=== PATIENT | female | born 1995 | race Caucasian/White ===

== ENCOUNTER 2025-04-13 13:57 | Outpatient (CLI) | payer OTHER, SELFPAY ==
--- NOTE | ~2025-04-13 | US_ITS ---
EXAMINATION: US OB <=14 wk fetus w TV DATE: 04/13/2025 13:16 INDICATION: Spotting during first trimester TECHNIQUE: Real-time pelvic ultrasound utilizing both a transvaginal and transabdominal probe was performed. The interpreting radiologist was not present for the study. COMPARISON: None. FINDINGS: The uterus measures 13.1 x 5.3 x 6.4 cm. There are several nabothian cysts at the cervix the largest measuring 9 mm. There is an intrauterine gestational sac. A yolk sac and pole are identified. The crown rump length measures 7 mm, which correlates with an estimated gestational age of 6 weeks and 4 days. Subjectively there is no visible heart motion on the cine grayscale images. This was unable to be sufficiently distinguished on the M-mode Doppler to determine a heart rate. The right ovary measures 2.1 x 1.6 x 1.1 cm. The left ovary measures 2.2 x 1.8 x 1.9 cm. Vascular flow identified in both ovaries on color Doppler. There is no free fluid in the pelvis. IMPRESSION: 1. Single living fetus with subjective heart motion visible on cine grayscale imaging. 2. Gestational age by ultrasound of 6 weeks 4 day(s) +/- 4 day(s) with ultrasound estimated date of delivery (СЕРГЕЙ) of 12/03/2025. Reviewed, dictated and finalized at location A. IMPRESSION: 1. Single living fetus with subjective heart motion visible on cine yuliana joanna imaging. 2. Gestational age by ultrasound of 6 weeks 4 day(s) +/- 4 day(s) with ultraso und estimated date of delivery (СЕРГЕЙ) of 12/03/2025.
--- OUTSIDE RECORDS SUMMARY | 2025-04-13 12:33 | XMS_ITS | Clinical Summary ---
Author Organization [facility] Address [address] [place] [address] Care Team Providers Care Mgmt Consultant Name Role Phone Mike Ellsworth MD Primary Care Provider [phone] [phone] Allergies No known active allergies Medications diclofenac sodium (VOLTAREN) 75 mg Tablet, Delayed Release (E.C.) TAKE 1 TABLET(75 MG) BY MOUTH TWICE DAILY 60 Tablet 02/21/2025 Active Active Problems Problem Noted Date Diagnosed Date Encounter for screening of mother 04/2016 Overview (11/17/2024): 1st look on 10/22/2015 Result: 1:10,000 for DS and 1:10,000 for Trisomy 18 2nd blood draw ideal dates: - Letter sent 10/31/2015 Final result: pending second draw Encounter for (NT) nuchal translucency scan 09/25 Encounters Date Type Department Care Team Description 03/29/2025 External Device Data ST[facility] ABSTRACTION Provider, Abstract 03/28/2025 External Device Data [facility] ABSTRACTION Provider, Abstract 03/08/2025 External Device Data [facility] ABSTRACTION Provider, Abstract 03/07/2025 External Device Data STL ABSTRACTION Provider, Abstract 02/22/2025 11:15 AM CDT Office Visit [facility] Sports Medicine at the [facility] [address] [facility] [address] [place] [address] Jeferson Grant MD Primary osteoarthritis of left hip (Primary Dx) 02/21/2025 External Device Data STL ABSTRACTION Provider, Abstract 02/17/2025 Refill [facility] Orthopedic Surgery at the [address] [place] [address] Gloria Nair PA 02/17/2025 Telephone [facility] Orthopedic Surgery at the [address] [place] [address] Gloria Nair PA Handicapped Placard 02/16/2025 3:30 PM CDT Office Visit [facility] Orthopedic Surgery at the [address] [place] [address] Gloria Nair PA Other secondary osteoarthritis of left hip (Primary Dx) 01/17/2025 Refill [facility] Orthopedic Surgery at the [address] [place] [address] Gloria Nair PA from Last 3 Months Social History Tobacco Use Types Packs/Day Years Used Date Smoking Tobacco: Never Tobacco Cessation:Counseling Given: Not Answered Comments Unknown Sex and Gender Information Value Date Recorded Sex Assigned at Not on file Legal Sex Female 3:19 AM FUR MIXER Gender Identity Not on file Sexual Orientation Not on file Plan of Treatment Health Maintenance Due Date Last Done Comments HPV VACCINES (1 - 3-dose series) 2009 DTAP/TDAP/TD VACCINES (1 - Tdap) 2013 HEPATITIS B VACCINES (1 of 3 - 19+ 3-dose series) 05/24 HPV/Cotest (21-29) 2015 CERVICAL CANCER SCREENING 2024 HPV/Cotest (30-65) 2024 PAP SMEAR 2024 INFLUENZA VACCINE (#1) 2025 Insurance [place] [id number] Care Teams Mgmt Consultant Relationship Specialty Start Date End Date Mike Ellsworth MD [address] [place] [phone] PCP - General 01/01/05
--- OUTSIDE RECORDS SUMMARY | 2025-04-13 12:33 | XMS_ITS | Encounter Summary ---
Author Organization [employer] Address [address] [place] [address] Care Team Providers Care Nipple Maker Name Role Phone Mike Ellsworth MD Primary Care Provider [phone] Encounter Details Date Type Department Care Team (Latest Contact Info) Description 01/01/2005 Inpatient Historical [facility] PATIENT IN A BED Alex Buckner MD NO ADDRESS ON FILE FEMORAL EPIPHYSIOLYSIS (Primary Dx) Social History Tobacco Use Types Packs/Day Years Used Date Smoking Tobacco: Never Assessed Comments Unknown Sex and Gender Information Value Date Recorded Sex Assigned at Not on file Legal Sex Female 3:19 AM ARTISTS' MODEL Gender Identity Not on file Sexual Orientation Not on file documented as of this encounter Plan of Treatment Not on file documented as of this encounter Visit Diagnoses Diagnosis Nontraumatic slipped upper femoral epiphysis- Primary documented in this encounter Care Teams Nipple Maker Relationship Specialty Start Date End Date Mike Ellsworth MD [address] [place] [phone] PCP - General 01/01/05 documented as of this encounter
--- OUTSIDE RECORDS SUMMARY | 2025-04-13 12:33 | XMS_ITS | Encounter Summary ---
Author Organization [employer] Address [address] [place] [address] Care Team Providers Care Design Project Manager Name Role Phone Mike Ellsworth MD Primary Care Provider [phone] [phone] Encounter Details Date Type Department Care Team (Latest Contact Info) Description 07/10/2005 Outpatient Historical HIS PATIENT IN A BED Alex Bukcner MD NO ADDRESS ON FILE FEMORAL EPIPHYSIOLYSIS (Primary Dx) Social History Tobacco Use Types Packs/Day Years Used Date Smoking Tobacco: Never Assessed Comments Unknown Sex and Gender Information Value Date Recorded Sex Assigned at Not on file Legal Sex Female 3:19 AM ENGINE MONITOR Gender Identity Not on file Sexual Orientation Not on file documented as of this encounter Plan of Treatment Not on file documented as of this encounter Visit Diagnoses Diagnosis Nontraumatic slipped upper femoral epiphysis- Primary documented in this encounter Care Teams Design Project Manager Relationship Specialty Start Date End Date Mike Ellsworth MD [address] [place] [phone] PCP - General 01/01/05 documented as of this encounter
--- OUTSIDE RECORDS SUMMARY | 2025-04-13 12:33 | XMS_ITS | Encounter Summary ---
Author Organization [facility] Address [address] [place] [address] Care Team Providers Care Retail Department Supervisor Name Role Phone Mike Ellsworth MD Primary Care Provider [phone] [phone] Encounter Details Date Type Department Care Team (Late st Contact Info) Description 06/03/2006 Outpatient Historical [facility] [address] [facility] [address] [place] [phone] Brennen Green Social History Tobacco Use Types Packs/Day Years Used Date Smoking Tobacco: Never Assessed Comments Unknown Sex and Gender Information Value Date Recorded Sex Assigned at Not on file Legal Sex Female 3:19 AM ELECTRONIC TECH Gender Identity Not on file Sexual Orientation Not on file documented as of this encounter Plan of Treatment Not on file documented as of this encounter Visit Diagnoses Not on filedocumented in this encounter Care Teams Retail Department Supervisor Relationship Specialty Start Date End Date Mike Ellsworth MD [address] [facility] [address] [place] [address] PCP - General 01/01/05 documented as of this encounter
--- OUTSIDE RECORDS SUMMARY | 2025-04-13 12:33 | XMS_ITS | Encounter Summary ---
Author Organization [facility] Address [address] [place] [address] Care Team Providers Care Edge Stainer Machine Name Role Phone Mike Ellsworth MD Primary Care Provider [phone] [phone] Encounter Details Date Type Department Care Team (Late st Contact Info) Description 06/03/2006 Outpatient Historical [facility] Department of Peds at [facility] [address] [place] [address] Archie Roca MD NO ADDRESS ON FILE Social History Tobacco Use Types Packs/Day Years Used Date Smoking Tobacco: Never Assessed Comments Unknown Sex and Gender Information Value Date Recorded Sex Assigned at Not on file Legal Sex Female 3:19 AM DIAL MARKER Gender Identity Not on file Sexual Orientation Not on file documented as of this encounter Plan of Treatment Not on file documented as of this encounter Visit Diagnoses Not on filedocumented in this encounter Care Teams Edge Stainer Machine Relationship Specialty Start Date End Date Mike Ellsworth MD [address] [place] [address] [address] [phone] PCP - General 01/01/05 documented as of this encounter
--- OUTSIDE RECORDS SUMMARY | 2025-04-13 12:33 | XMS_ITS | Encounter Summary ---
Author Organization [facility] [employer] [facility] Address [address] [place] [address] Care Team Providers Care Motorcycle Riding Instructor Name Role Phone Mike Ellsworth MD Primary Care Provider [phone] [phone] Encounter Details Date Type Department Care Team (Late st Contact Info) Description 09/15/2006 Outpatient Historical [facility] Mike Ellsworth MD [address] [address] Swelling, Mass, or Lump in Head and Neck (Primary Dx) Social History Tobacco Use Types Packs/Day Years Used Date Smoking Tobacco: Never Assessed Comments Unknown Sex and Gender Information Value Date Recorded Sex Assigned at Not on file Legal Sex Female 3:19 AM PROFESSOR OF COUNSELING Gender Identity Not on file Sexual Orientation Not on file documented as of this encounter Plan of Treatment Not on file documented as of this encounter Visit Diagnoses Diagnosis Swelling, mass, or lump in head and neck- Primary documented in this encounter Care Teams Motorcycle Riding Instructor Relationship Specialty Start Date End Date Mike Ellsworth MD [address] [facility] [address] [address] PCP - General 01/01/05 documented as of this encounter
--- OUTSIDE RECORDS SUMMARY | 2025-04-13 12:33 | XMS_ITS | Clinical Summary ---
Author Organization [facility] Address [facility] [place] [address] Care Team Providers Care Life Skills Specialist Name Role Phone None, Provider Primary Care Provider Unavaila ble Allergies No known active allergies Medications diclofenac EC (VOLTAREN) 75 MG tablet Take 1 tablet (75 mg total) by mouth 2 (two) times daily. 02/21/2025 Active Encounters Date Type Department Care Team Description 04/09/2025 10:26 PM CDT - 04/10/2025 1:04 AM CDT Emergency [facility] Emergency Room [id number] [place], [place] [id number] Kerline Keating MD Vaginal Bleeding Discharge Disposition: Home or Self Care (Routine Discharge) 04/09/2025 Travel from Last 3 Months Social History Tobacco Use Types Packs/Day Years Used Date Smoking Tobacco: Every Day Electronic Cigarettes Smokeless Tobacco: Former Alcohol Use Standard Drinks/Week Comments Never 0 (1 standard drink = 0.6 oz pur e alcohol) AUDIT-C Answer Date Recorded Q1: How often do you have a drink containing alc ohol? Never 07/28/2020 Average Number of Drinks Not on file 020 Frequency of Binge Drinking Not on file 12/2019 Comments Yes Sex and Gender Information Value Date Recorded Sex Assigned at Female 04/09/2025 10:48 PM CDT Legal Sex Female 7:11 PM CDT Gender Identity Not on file Sexual Orientation Not on file Last Filed Vital Signs Vital Sign Reading Time Taken Comments Blood Pressure 126/74 04/10/2025 1:00 AM CDT Pulse 98 04/09/2025 10:38 PM CDT Temperature 37.1 C (98.7 F) 04/09/2025 10:38 PM CDT Respiratory Rate 19 04/09/2025 10:38 PM CDT Oxygen Saturation 99% 04/10/2025 1:00 AM CDT Inhaled Oxygen Concentration - - Weight 127 kg (280 lb) 04/09/2025 10:38 PM CDT Height 162.6 cm (5' 4) 04/09/2025 10:38 PM CDT Body Mass Index 48.06 04/09/2025 10:38 PM CDT Plan of Treatment Health Maintenance Due Date Last Done Comments Cervical Cancer Screening Pa p Smear (Age 30 to 64) Every 3 Years 1994 Annual Physical 1997 Hepatitis C 2012 DTaP, Tdap and Td Vaccines ( 1 - Tdap) 2013 Hepatitis B Vaccines (1 of 3 - 19+ 3-dose series) 2013 Pneumococcal Vaccine: Pediatrics (0 to 5 Years) and At-Risk Patients (6 to 49 Years) (1 of 2 - PCV) 2013 HPV Vaccines (1 - 3-dose SCD M series) 2021 COVID-19 Vaccine (3 - 2023-2 5 season) 2024 04/07/2021, 12/11/2020 Cervical Cancer Screening Pa p with HPV Testing (Age 30 to 64) Every 5 Years 2024 Cervical Cancer Screening wi HPV 2024 RSV Immunization or 60+ Years (1 - 1-dose 75+ series) 2069 Meningococcal B Vaccine Aged Out No l onger eligible based on patient's age to complete this topic Meningococcal Vaccine Aged Out No alex lizeth eligible based on patient's age to complete this topic RSV Immunizations Under 20 Months Aged Out No longer eligible b ased on patient's age to complete this topic Procedures Procedure Name Priority Date/Time Associated Diagnosis Comments US OB TRANSVAG STAT 04/09/2025 11:56 PM CDT HC BLOOD TYPING ABO STAT 04/09/2025 1 0:45 PM CDT HC HCG QN STAT 04/09/2025 10:45 PM CDT COMPREHENSIVE METABOLIC PANEL STAT 04/09/2025 10:45 PM CDT CBC W/DIFF AUTOMATED STAT 04/09/2025 10:45 PM CDT from Last 3 Months Results * US OB TRANSVAG (04/09/2025 11:56 PM CDT) Anatomical Region Laterality Modality Abdomen, Pelvis Ultrasound 04/09/2025 11:5 5 PM CDT Impressions 04/10/2025 12:04 AM CDT IMPRESSION: ===== 1. Single live intrauterine with estimated gestational age of 6 week and 1 day. This is concordant with age by LMP of 5 weeks and 4 days. 2. heart rate 125 3. Small subchorionic hemorrhage measuring up to 18 mm. Follow-up recommended. 4. Neither maternal ovary is identified. 5. No findings to suggest ectopic . Referred By: Interpreted By: Pj Anderson MD, 04/09/2025 11:55 PM Narrative 04/10/2025 12:04 AM CDT [facility] [address] [facility] [place] [address] EXAMINATION: OB ultrasound with transvaginal imaging EXAM DATE/TIME: 04/09/2025 11:04 PM REASON FOR EXAM: Rule out ectopic Bleeding at 9:00 PM this evening. No associated pain. LMP 03/01/2025. A2. COMPARISON: No comparison this . TECHNIQUE: Transvaginal ultrasound evaluation of the pelvic contents was performed for analysis of grayscale and color Doppler imaging characteristics. FINDINGS: Nabothian cysts. The cervix is closed. Uterus measures 5.7 x 10.3 x 5.1 cm. Single intrauterine identified. A yolk sac and pole are seen within the gestational sac. Average crown rump length is 3.72 cm per cardiac activity is identified in the pole and measures 125 bpm. Average gestational sac size diameter is 2.13 cm. There is a small subchorionic hemorrhage measuring up to 18 mm. Neither ovary is identified. No significant free fluid in the pelvis. ===== Procedure Note Pj Anderson MD - 04/10/2025 [facility] [address] [place] [address] EXAMINATION: OB ultrasound with transvaginal imaging EXAM DATE/TIME: 04/09/2025 11:04 PM REASON FOR EXAM: Rule out ectopic Bleeding at 9:00 PM this evening. No associated pain. LMP 03/01/2025. . COMPARISON: No comparison this . TECHNIQUE: Transvaginal ultrasound evaluation of the pelvic contents wasperformed for analysis of grayscale and color Doppler imagingcharacteristics. FINDINGS: Nabothian cysts. The cervix is closed. Uterus measures 5.7 x10.3 x 5.1 cm. Single intrauterine identified. A yolk sac andfetal pole are seen within the gestational sac. Average crown rump lengthis 3.72 cm per cardiac activity is identified in the pole andmeasures 125 bpm. Average gestational sac size diameter is 2.13 cm.There is a small subchorionic hemorrhage measuring up to 18 mm. Neitherovary is identified. No significant free fluid in the pelvis. ===== IMPRESSION: ===== 1. Single live intrauterine with estimated gestational age of 6week and 1 day. This is concordant with age by LMP of 5 weeks and 4days. 2. heart rate 125 3. Small subchorionic hemorrhage measuring up to 18 mm. Follow-uprecommended. 4. Neither maternal ovary is identified. 5. No findings to suggest ectopic . Referred By: Interpreted By: Pj Anderson MD, 04/09/2025 11:55 PM us Kerline Keating MD ULTRASOUND Final Result * (ABNORMAL) COMPREHENSIVE METABOLIC PANEL (04/09/2025 10:45 PM CDT) [facility] GLUCOSE 94 70 - 99 MG/DL 04/09/2025 11:48 PM CDT [facility] BUN 7 7 - 18 MG/DL 04/09/2025 11:48 PM CDT [facility] CREATININE S/P/B 0.58 0.55 - 1.02 MG/DL 04/09/2025 11:48 PM CDT [facility] SODIUM S/P/B 137 136 - 145 MMOL/L 04/09/2025 11:48 PM CDT [facility] POTASSIUM S/P/B 3.9 3.5 - 5.1 MMOL/L 04/09/2025 11:48 PM CDT [facility] CHLORIDE S/P/B 103 100 - 108 MMOL/L 04/09/2025 11:48 PM CDT [facility] CO2 23.2 21 - 32 MMOL/L 04/09/2025 11:48 PM CDT [facility] CALCIUM S/P/B 8.7 8.5 - 10.1 MG/DL 04/09/2025 11:48 PM T [facility] BILIRUBIN TOTAL S/P/B 0.3 0.2 - 1.2 MG/DL 04/09/2025 11:48 PM T [facility] TOTAL PROTEIN S/P/B 6.9 6.4 - 8.2 G/DL 04/09/2025 11:48 PM T [facility] ALBUMIN S/P/B 3.4 3.4 - 5.0 G/DL 04/09/2025 11:48 PM T [facility] AST 22 15 - 37 U/L 04/09/2025 11:48 PM CDT [facility] ALT 37 14 - 55 U/L 04/09/2025 11:48 PM CDT [facility] ALKALINE PHOSPHATASE S/P/B 47(L) 50 - 136 U/L 04/09/2025 11:48 PM CDT [facility] ANION GAP 10.8 5 - 15 MMOL/L 04/09/2025 11:48 PM CDT [facility] BUN CREATININE RATIO 12.1 6 - 26 04/09/2025 11:48 PM CDT [facility] A/G RATIO 1.0 1.0 - 2.0 RATIO 04/09/2025 11:48 PM CDT [facility] GFR ESTIMATE >90 >90 ML/MIN/1.7 3 M2 04/09/2025 11:48 PM CDT [facility] Comment: NOTE: eGFR is not calculated for patients <18 years of age. This is an estimated GFR calculation using the new CKD EPI creatinine equation without race and so does not require a correction factor for race. This estimated GFR should not be used for calculating drug doses. 04/09/2025 10:4 5 PM CDT Kerline Keating MD LABORATORY Final Result [facility] [address] [place] [address], * (ABNORMAL) HCG QUANTITATIVE SERUM (04/09/2025 10:45 PM CDT) Pathologist [facility] HCG QUANTITATIVE 38,908(H) 0 - 6 MIU/ML 04/09/2025 11:48 PM CDT [facility] Comment: WEEKS OF REFERENCE RANGES NON- FEMALE 0-6 0.2 - 1 5 - 50 1 - 2 50 - 500 2 - 3 100 - 5000 3 - 4 500 - 10,000 4 - 5 1000 - 50,000 5 - 6 10,000 - 100,000 6 - 8 15,000 - 200,000 2 - 3 MONTHS 10,000 - 100,000 04/09/2025 10:4 5 PM CDT us Kerline Keatnig MD LABORATORY Final Result Performing Organization Address City/[facility]/ZIP Co de Phone Number [facility] [address] [place] [address], [place] [phone] * BLOOD TYPING, ABO AND RH (04/09/2025 10:45 PM CDT) Pathologist [facility] ABO/RH A POSITIVE 04/09/2025 11:45 PM CDT [facility] 04/09/2025 10:4 5 PM CDT us Kerline Keating MD BLOOD BANK TEST ORDERABLES Melva l Result Performing Organization Address City/[facility]/ZIP Co de Phone Number [facility] [address] [place] [address], [place] [phone] * (ABNORMAL) CBC W/DIFF AUTOMATED (04/09/2025 10:45 PM CDT) WBC 10.58 4.4 - 11.0 x10'3/uL 04/09/2025 11:02 PM CDT [facility] RBC 4.95 4.50 - 5.10 x10'6/uL 04/09/2025 11:02 PM CDT [facility] HGB 13.4 12.3 - 15.3 G/DL 04/09/2025 11:02 PM CDT [facility] HCT 41.5 35.9 - 44.6 % 04/09/2025 11:02 PM CDT [facility] MCV 83.8 80.0 - 96.0 FL 04/09/2025 11:02 PM CDT [facility] MCH 27.1 25.3 - 30.9 PG 04/09/2025 11:02 PM T [facility] MCHC 32.3 31.0 - 34.1 G/DL 04/09/2025 11:02 PM [facility] RDW 14.7 12.4 - 15.1 % 04/09/2025 11:02 PM [facility] PLT 253 151 - 353 x10'3/uL 04/09/2025 11:02 PM T [facility] MPV 10.0 9.6 - 12.0 FL 04/09/2025 11:02 PM T [facility] RBC MORPHOLOGY NORMAL 04/09/2025 11:02 PM [facility] PLT MORPH. NORMAL 04/09/2025 11:02 PM [facility] WBC MORPHOLOGY NORMAL 04/09/2025 11:02 PM [facility] LYMPHOCYTES % 23.9 15.8 - 45.0 % 04/09/2025 11:02 PM [facility] NEUTROPHILS % 66.2 42.1 - 71.9 % 04/09/2025 11:02 PM [facility] MONOCYTES % 7.5 5.7 - 12.5 % 04/09/2025 11:02 PM [facility] EOSINOPHILS 1.4 0.0 - 5.6 % 04/09/2025 11:02 PM [facility] BASOPHILS 0.5 0.0 - 1.3 % 04/09/2025 11:02 PM [facility] ABS. NEUTROPHILS 7.01(H) 1.40 - 6.00 x10'3/uL 04/09/2025 11:02 PM [facility] IMMATURE GRANS % 0.5 0.0 - 0.5 % 04/09/2025 11:02 PM CDT [facility] ABS. LYMPHOCYTES 2.53 0.80 - 4.70 x10'3/uL 04/09/2025 11:02 PM CDT [facility] 04/09/2025 10:4 5 PM CDT Kerline Keating MD LABORATORY Final Result [facility] [address] [place] [address], [place] [phone] from Last 3 Months Insurance Care Teams Life Skills Specialist Relationship Specialty Start Date End Date None, Provider, PCP - General UNKNOWN PHYSICIAN SPECIALTY 04/09/25
--- OUTSIDE RECORDS SUMMARY | 2025-04-13 12:33 | XMS_ITS | Encounter Summary ---
Author Organization [employer] Address [address] [place] [address] Care Team Providers Care Osteopathic Medicine Teacher Name Role Phone Mike Ellsworth MD Primary Care Provider +1 [phone] Encounter Details Date Type Department Care Team (Latest Contact Info) Description 06/03/2006 Inpatient Historical HIS PATIENT IN A BED Mike Ellsworth MD [address] [place] [phone] Cellulitis and Abscess of Buttock (Primary Dx) Social History Tobacco Use Types Packs/Day Years Used Date Smoking Tobacco: Never Assessed Comments Unknown Sex and Gender Information Value Date Recorded Sex Assigned at Not on file Legal Sex Female 3:19 AM STENOTYPIST Gender Identity Not on file Sexual Orientation Not on file documented as of this encounter Plan of Treatment Not on file documented as of this encounter Procedures Procedure Name Priority Date/Time Associated Diagnosis Comments CBC WITH DIFFERENTIAL Routine 06/03/2006 6:10 PM CDT CBC WITH DIFFERENTIAL Routine 06/03/2006 6:10 PM CDT CBC WITH DIFFERENTIAL Routine 06/03/2006 6:10 PM CDT C-REACTIVE PROTEIN Routine 06/03/2006 6: 10 PM CDT documented in this encounter Results * (ABNORMAL) CBC WITH DIFFERENTIAL (06/03/2006 6:10 PM CDT) Pathologist [facility] [place] NEUTROPHIL ABSOLUTE 10.71 K/uL INTERFACE SYSTEM LYMPHOCYTE ABSOLUTE 1.68 K/uL INTERFACE SYSTEM MONOCYTE ABSOLUTE 0.52 K/uL INTERFACE SYSTEM EOSINOPHIL ABSOLUTE 0.00 K/uL INTERFACE SYSTEM BASOPHILS ABSOLUTE 0.00 K/uL INTERFACE SYSTEM NEUTROPHILS, SEG 83(H) 36 - 74 % INT ERFACE SYSTEM LYMPHOCYTES 13(L) 18 - 53 % INTERFAC E SYSTEM MONOCYTES 4 2 - 13 % INTERFACE SYSTEM EOSINOPHILS 0(L) 2 - 12 % INTERFAC E SYSTEM BASOPHILS 0 0 - 3 % INTERFACE SYSTEM PLATELET EST. Consistent w/ count Normal INTERFACE SYSTEM ANISOCYTOSIS Slight INTERFA CE SYSTEM POIKILOCYTES Slight INTERFA CE SYSTEM MICROCYTES Slight INTERFACE SYSTEM OVALOCYTES Slight INTERFACE SYSTEM 06/03/2006 6:10 PM CDT Archie Roca MD HEMATOLOGY ORDERABLES Melva l Result Performing Organization Address City/[facility] Co de Phone Number INTERFACE SYSTEM Refer to clinic/hospital department * CBC WITH DIFFERENTIAL (06/03/2006 6:10 PM CDT) Pathologist [facility] [place] NRBC 0 <=0 /100 WBC INTERFACE SYSTEM 06/03/2006 6:10 PM CDT Archie Roca MD HEMATOLOGY ORDERABLES Melva l Result Performing Organization Address [facility]/ZIP Co de Phone Number INTERFACE SYSTEM Refer to clinic/hospital department * (ABNORMAL) CBC WITH DIFFERENTIAL (06/03/2006 6:10 PM CDT) Pathologist [facility] [place] WBC 12.9(H) 4.0 - 9.8 K/uL INTERFACE SYSTEM RBC 5.01(H) 3.90 - 4.90 M/uL INTERFACE SYSTEM HEMOGLOBIN 12.9 11.8 - 14.8 g/dL INTERFACE SYSTEM HEMATOCRIT 39.0 35.5 - 44.0 % INTERFACE SYSTEM MCV 77.8(L) 82.0 - 99.0 fL INTERFACE SYSTEM MCH 25.7(L) 27.2 - 32.6 pg INTERFACE SYSTEM MCHC 33.1 31.5 - 35.5 % INTERFACE SYSTEM RDW 13.7 11.5 - 14.5 % INTERFACE SYSTEM RDW-STDEV 38.8 37.1 - 48.7 fL INTERFACE SYSTEM PLATELETS 317 140 - 350 K/uL INTERFACE SYSTEM MPV 10.9 9.3 - 12.4 fL INTERFACE SYSTEM 06/03/2006 6:10 PM CDT Archie Roca MD HEMATOLOGY ORDERABLES Melva l Result Performing Organization Address City/[facility]/ZIP Co de Phone Number INTERFACE SYSTEM Refer to clinic/hospital department * (ABNORMAL) C-REACTIVE PROTEIN (06/03/2006 6:10 PM CDT) CRP 2.1(H) 0.0 - 0.8 mg/dL INTERFACE SYSTEM 06/03/2006 6:10 PM CDT us Archie Roca MD CHEMISTRY ORDERABLES Final Result Performing Organization Address City/[facility] Co de Phone Number INTERFACE SYSTEM Refer to clinic/hospital department documented in this encounter Visit Diagnoses Diagnosis Cellulitis and abscess of buttock- Primary documented in this encounter Care Teams Osteopathic Medicine Teacher Relationship Specialty Start Date End Date Mike Ellsworth MD [address] [place] [phone] PCP - General 01/01/05 documented as of this encounter
--- OUTSIDE RECORDS SUMMARY | 2025-04-13 12:33 | XMS_ITS | Encounter Summary ---
Author Organization [facility] Address [address] [place] [address] Care Team Providers Care Director Instructional Material Name Role Phone Mike Ellsworth MD Primary Care Provider +1 [phone] Encounter Details Date Type Department Care Team (Late st Contact Info) Description 11/23/2008 Outpatient Historical HIS IMG-LAB [facility] Angélica Martin MD [address] [place] [address] Cervicalgia Social History Tobacco Use Types Packs/Day Years Used Date Smoking Tobacco: Never Assessed Comments Unknown Sex and Gender Information Value Date Recorded Sex Assigned at Not on file Legal Sex Female 3:19 AM NAPKIN BAND WRAPPER Gender Identity Not on file Sexual Orientation Not on file documented as of this encounter Plan of Treatment Not on file documented as of this encounter Procedures Procedure Name Priority Date/Time Associated Diagnosis Comments CT LUMBAR SPINE WO CONTRAST Pending Discharge 11/23/2008 4:05 PM CDT documented in this encounter Results * CT LUMBAR SPINE WO CONTRAST (11/23/2008 4:05 PM CDT) Anatomical Region Laterality Modality Spine Other 11/23/2008 4:05 PM CDT Narrative 11/24/2008 9:57 AM CDT [facility] [address] [place], [place] [address] Admit Date: 11/23/2008 KAREN CALIXTO I Sex: F Admit Prov: ANGÉLICA MARTIN Date: 1995 Primary Care Prov: MIKE ELLSWORTH CMRN: [id number] Room: [facility] SSN: [id number] IMAGING SERVICES Ordering Prov: N/A Accession Number: [id number] Interpretation CT LUMBAR SPINE WITHOUT CONTRAST Nov 23, 2008 4:12:17 PM History: Possible spondylolysis at L5-S1, low back pain. Technique: Due to the patient's young age a limited study was performed with axial images from L3 through S1 reformatted in sagittal and coronal planes. The lower lumbar vertebrae are normally aligned without subluxation or compression deformity. Disc height is maintained. No pars defects are identified. No fractures are seen. There is question of a disc bulge at L5- S1, possibly with a superimposed focal left paracentral disc herniation. This does not cause spinal canal stenosis or foraminal stenosis. There is also mild bulging of the L4-L5 disc without stenosis. Impression: Questionable small disc herniation at L5-S1 which could be further evaluated with MRI. No evidence of spondylolysis or spondylolisthesis. . Dictated by: FABIÁN JACK 11/23/2008 16:59 Electronically signed by: FABIÁN JACK 11/24/2008 09:55 Transcribed: 11/23/2008 17:06 LE Procedure Note Fabián Jack - 11/24/[address] [address] Admit Date: 11/23/2008 SILVESTREPANFILO KARENClau Sex: F Admit Prov: ANGÉLICA MARTIN Date:1995 Primary Care Prov: MIKE ELLSWORTH CMRN: [id number] Room: [facility] SSN: [id number] IMAGING SERVICES Ordering Prov: N/A Interpretation CT LUMBAR SPINE WITHOUT CONTRAST Nov 23, 2008 4:12:17 PM History: Possible spondylolysis at L5-S1, low back pain. Technique: Due to the patient's young age a limited study wasperformed with axial images from L3 through S1 reformatted in sagittal andcoronal planes. The lower lumbar vertebrae are normally aligned withoutsubluxation or compression deformity. Disc height is maintained. No pars defectsare identified. No fractures are seen. There is question of a disc bulgeat L5- S1, possibly with a superimposed focal left paracentral discherniation. This does not cause spinal canal stenosis or foraminal stenosis.There is also mild bulging of the L4-L5 disc without stenosis. Impression: Questionable small disc herniation at L5-S1 which could be further evaluated with MRI. No evidence of spondylolysis or spondylolisthesis. . Dictated by: FABIÁN JACK 11/23/2008 16:59 Electronically signed by: FABIÁN JACK 11/24/2008 09:55 Transcribed: 11/23/2008 17:06 LE us Angélica Martin MD CT ORDERABLES Final Resul t documented in this encounter Visit Diagnoses Diagnosis Cervicalgia documented in this encounter Care Teams Director Instructional Material Relationship Specialty Start Date End Date Mike Ellsworth MD [address] [place] [phone] PCP - General 01/01/05 documented as of this encounter
--- OUTSIDE RECORDS SUMMARY | 2025-04-13 12:33 | XMS_ITS | Clinical Summary ---
Author Organization [facility] [address] Address [address] [place] [address] Care Team Providers Care Pantograph Machine Operator Name Role Phone Unknown, Notinfile Primary Care Provider Unavail able Allergies No known active allergies Medications cetirizine (ZyrTEC) 10 mg tablet Take 1 tablet (10 mg total) by mouth daily Active fluticasone propionate (FLONASE) 50 mcg/actuation nasal spray Administer 1 spray into each nostril daily Active albuterol HFA (PROVENTIL HFA,VENTOLIN HFA,PROAIR HFA) 90 mcg/actuation inhalerIndicati ons:Acute cough Inhale 2 puffs every 6 (six) hours as needed for wheezing or shortness of breath 18 g 4 Active benzonatate (TESSALON) 100 mg capsuleIndicati ons:Cough Take 1 capsule (100 mg total) by mouth 3 (three) times a day as needed for cough 42 capsule 4 Active amoxicillin-cla vulanate (AUGMENTIN) 875-125 mg per tablet Take 1 tablet by mouth 2 (two) times a day 20 tablet 5 Active Active Problems Problem Noted Date Diagnosed Date Otalgia 01/20/2025 Personal history of COVID-19 12/17/2021 Overview (12/17/2021): August 2021 per pt's recall Encounters Date Type Department Care Team Description 01/20/2025 6:35 PM CDT E-Visit [facility] Medical [facility] Virtual Care [address] [place] [address] Fadumo Mota, CIARA Your Medications 01/20/2025 Patient Self-Triage [facility] [address] [place] [address] Mychart, Generic Provider 01/20/2025 Patient Self-Triage [facility] [address] [place] [address] Mychart, Generic Provider 01/20/2025 Patient Self-Triage [facility] [address] [place] [id number] Mychart, Generic Provider from Last 3 Months Immunizations Immunization Administration Dates Next Due Pfizer SARS-CoV-2 Monovalent Vaccination (12+ Yrs) PURPLE 04/24/2021,11/22/2020 Social History Tobacco Use Types Packs/Day Years Used Date Smoking Tobacco: Never Assessed Personal Safety Answer Date Recorded Getting School Help Needed Not on file 12/06 Comments Unknown Sex and Gender Information Value Date Recorded Sex Assigned at Not on file Legal Sex Female 2:12 PM CDT Gender Identity Not on file Sexual Orientation Not on file Last Filed Vital Signs Vital Sign Reading Time Taken Comments Blood Pressure 138/78 06/15/2024 8:31 AM CDT Pulse 89 06/15/2024 8:31 AM CDT Temperature 36.6 C (97.8 F) 06/15/2024 8:31 AM CDT Respiratory Rate 18 06/15/2024 8:31 AM CDT Oxygen Saturation 99% 06/15/2024 8:31 AM CDT Inhaled Oxygen Concentration - - Weight 122.5 kg (270 lb) 06/15/2024 8:31 AM CDT Height 162.6 cm (5' 4) 06/15/2024 8:31 AM CDT Body Mass Index 46.35 06/15/2024 8:31 AM CDT Plan of Treatment Health Maintenance Due Date Last Done Comments Cervical Cancer Screening 1994 Depression Screening 1994 Hepatitis C Screening 1994 DTaP/Tdap/Td Vaccine (1 - Tdap) 2005 Varicella Vaccines (1 of 2 - 13+ 2-dose series) 2007 Hepatitis B Screening 2012 Regular Well Visit/Exam 18-64 2012 HPV Vaccines (1 - 3-dose SCD M series) 2021 Covid-19 Vaccine (3 - 2023-2 5 season) 2024 04/24/2021, 11/22/2020 Influenza Vaccine (#1) 2025 Pneumococcal vaccine <65 Aged Out No longer eligible based on patient's age to complete this topic [place] [address] [address] ACCESS CHOICE Care Teams Pantograph Machine Operator Relationship Specialty Start Date End Date Unknown, Notinfile PCP - General 12/07/23
--- OUTSIDE RECORDS SUMMARY | 2025-04-13 12:33 | XMS_ITS | Encounter Summary ---
Author Organization [employer] Address [address] [place] [address] Care Team Providers Care Clinical Practitioner Name Role Phone Mike Ellsworth MD Primary Care Provider [phone] [phone] Encounter Details Date Type Department Care Team (Late st Contact Info) Description 04/06/2007 Emergency HIS EMERGENCY ROOM Aarti Vang MD [address] [facility] [place] [phone] Er, Authorized P NO ADDRESS ON FILE Cellulitis and Abscess of Leg, except Foot (Primary Dx) Social History Tobacco Use Types Packs/Day Years Used Date Smoking Tobacco: Never Assessed Comments Unknown Sex and Gender Information Value Date Recorded Sex Assigned at Not on file Legal Sex Female 3:19 AM PRACTICE DIRECTOR Gender Identity Not on file Sexual Orientation Not on file documented as of this encounter Plan of Treatment Not on file documented as of this encounter Visit Diagnoses Diagnosis Cellulitis and abscess of leg, except foot- Primary documented in this encounter Care Teams Clinical Practitioner Relationship Specialty Start Date End Date Mike Ellsworth MD [address] [place] [address] [address] [place] [phone] PCP - General 01/01/05 documented as of this encounter
--- OUTSIDE RECORDS SUMMARY | 2025-04-13 14:08 | XMS_ITS | Clinical Summary ---
Author Organization [facility] Address [address] [place] [address] Care Team Providers Care Courtesy Van Driver Name Role Phone Mike Ellsworth MD Primary Care Provider +1 [phone] Allergies No known active allergies Medications diclofenac [...] Abstract 02/22/2025 11:15 AM CDT Office Visit [facility] Sports Medicine at the [facility] [address] [place] [address] Jeferson Grant MD Primary osteoarthritis of left hip (Primary Dx) 02/21/2025 External Device Data STL ABSTRACTION Provider, Abstract 02/17/2025 Refill [facility] Orthopedic Surgery at the [address] [place] [address] Gloria Nair PA 02/17/2025 Telephone [facility] Orthopedic Surgery at the [address] [place] [address] Gloria Nair PA Handicapped Placard 02/16/2025 3:30 PM CDT Office Visit [facility] Orthopedic Surgery at the [address] [place] [address] Gloria Nair PA Other secondary osteoarthritis of left hip (Primary Dx) 01/17/2025 Refill [facility] Orthopedic Surgery at the [address] [place] [address] Gloria Nair PA from Last 3 Months Social History Tobacco Use Types Packs/Day Years Used Date Smoking Tobacco: Never Tobacco Cessation:Counseling Given: Not Answered Comments Unknown Sex and Gender Information Value Date Recorded Sex Assigned at Not on file Legal Sex Female 3:19 AM 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
--- OUTSIDE RECORDS SUMMARY | 2025-04-13 14:08 | XMS_ITS | Encounter Summary ---
Author Organization [employer] Address [address] [place] [address] Care Team Providers Care Industrial Technician Name Role Phone Mike Ellsworth MD Primary Care Provider [phone] [phone] Encounter Details Date Type Department Care Team (Latest Contact Info) Description 07/10/2005 Outpatient Historical HIS PATIENT IN A BED Alex Buckner MD NO ADDRESS ON FILE FEMORAL EPIPHYSIOLYSIS (Primary Dx) Social History Tobacco Use Types Packs/Day Years Used Date Smoking Tobacco: Never Assessed Comments Unknown Sex and Gender Information Value Date Recorded Sex Assigned at Not on file Legal Sex Female 3:19 AM TOLL BOOTH OPERATOR Gender Identity Not on file Sexual Orientation Not on file documented as of this encounter Plan of Treatment Not on file documented as of this encounter Visit Diagnoses Diagnosis Nontraumatic slipped upper femoral epiphysis- Primary documented in this encounter Care Teams Industrial Technician Relationship Specialty Start Date End Date Mike Ellsworth MD [address] [place] [phone] PCP - General 01/01/05 documented as of this encounter
--- OUTSIDE RECORDS SUMMARY | 2025-04-13 14:08 | XMS_ITS | Encounter Summary ---
Author Organization [facility] Address [address] [place] [address] Care Team Providers Care Locomotive Observer Name Role Phone Mike Ellsworth MD Primary Care Provider [phone] [phone] Encounter Details Date Type Department Care Team (Late st Contact Info) Description 06/03/2006 Outpatient Historical [facility] Department of Peds at [facility] [address] [place] [address] Archie Roca MD NO ADDRESS ON FILE Social History Tobacco Use Types Packs/Day Years Used Date Smoking Tobacco: Never Assessed Comments Unknown Sex and Gender Information Value Date Recorded Sex Assigned at Not on file Legal Sex Female 3:19 AM KITCHEN CHEF Gender Identity Not on file Sexual Orientation Not on file documented as of this encounter Plan of Treatment Not on file documented as of this encounter Visit Diagnoses Not on filedocumented in this encounter Care Teams Locomotive Observer Relationship Specialty Start Date End Date Mike Ellsworth MD [address] [place] [address] [address], [place] [phone] PCP - General 01/01/05 documented as of this encounter
--- OUTSIDE RECORDS SUMMARY | 2025-04-13 14:08 | XMS_ITS | Encounter Summary ---
Author Organization [facility] Address [address] [place] [address] Care Team Providers Care Clerical Stock Inspector Name Role Phone Mike Ellsworth MD Primary Care Provider +1 [phone] Encounter Details Date Type Department Care Team (Late st Contact Info) Description 11/23/2008 Outpatient Historical HIS IMG-LAB [facility] Angélica Martin MD [address] [place] [address] Cervicalgia Social History Tobacco Use Types Packs/Day Years Used Date Smoking Tobacco: Never Assessed Comments Unknown Sex and Gender Information Value Date Recorded Sex Assigned at Not on file Legal Sex Female 3:19 AM COMMANDING OFFICER HOMICIDE SQUAD Gender Identity Not on file Sexual Orientation [...] PM CDT Narrative 11/24/2008 9:57 AM CDT [facility] [address] [place], [place] [address] Admit Date: 11/23/2008 KAREN CALIXTO I Sex: F Admit Prov: ANGÉLICA MARTIN Date: 1995 Primary Care Prov: MIKE ELLSWORTH CMRN: [id number] Room: [facility] SSN: [id number] IMAGING SERVICES Ordering Prov: N/A Accession Number: [id number] Interpretation CT LUMBAR SPINE WITHOUT CONTRAST Nov [...] LE Procedure Note Fabián Jack - 11/24/[address] [address] Admit Date: 11/23/2008 SILVESTREPANFILO KARENClau Sex: F Admit Prov: ANGÉLICA MARTIN Date:1995 Primary Care Prov: MIKE ELLSWORTH CMRN: [id number] Room: [facility] SSN: [id number] IMAGING SERVICES Ordering Prov: N/A Interpretation CT [...] FABIÁN JACK 11/23/2008 16:59 Electronically signed by: FABÁIN JACK 11/24/2008 09:55 Transcribed: 11/23/2008 17:06 LE us Angélica Martin MD CT ORDERABLES Final Resul t documented in this encounter Visit Diagnoses Diagnosis Cervicalgia documented in this encounter Care Teams Clerical Stock Inspector Relationship Specialty Start Date End Date Mike Ellsworth MD [address] [place] [phone] PCP - General 01/01/05 documented as of this encounter
--- OUTSIDE RECORDS SUMMARY | 2025-04-13 14:08 | XMS_ITS | Encounter Summary ---
Author Organization [employer] Address [address] [place] [address] Care Team Providers Care Frozen Food Department Manager Name Role Phone Mike Ellsworth MD Primary Care Provider +1 [phone] Encounter Details Date Type Department Care Team (Late st Contact Info) Description 09/15/2006 Outpatient Historical [facility] Mike Ellsworth MD [address] [address] Swelling, Mass, or Lump in Head and Neck (Primary Dx) Social History Tobacco Use Types Packs/Day Years Used Date Smoking Tobacco: Never Assessed Comments Unknown Sex and Gender Information Value Date Recorded Sex Assigned at Not on file Legal Sex Female 3:19 AM CABLE INSTALLATION TECHNICIAN Gender Identity Not on file Sexual Orientation Not on file documented as of this encounter Plan of Treatment Not on file documented as of this encounter Visit Diagnoses Diagnosis Swelling, mass, or lump in head and neck- Primary documented in this encounter Care Teams Frozen Food Department Manager Relationship Specialty Start Date End Date Mike Ellsworth MD [address] [facility] [address], [place] [address] PCP - General 01/01/05 documented as of this encounter
--- OUTSIDE RECORDS SUMMARY | 2025-04-13 14:08 | XMS_ITS | Encounter Summary ---
Author Organization [email or web address] Address [address] [place] [address] Care Team Providers Care Superintendent Police Name Role Phone Mike Ellsworth MD Primary Care Provider +1 -[phone] Encounter Details Date Type Department Care Team (Latest Contact Info) Description 01/01/2005 Inpatient Historical HIS PATIENT IN A BED Alex Buckner MD NO ADDRESS ON FILE FEMORAL EPIPHYSIOLYSIS (Primary Dx) Social History Tobacco Use Types Packs/Day Years Used Date Smoking Tobacco: Never Assessed Comments Unknown Sex and Gender Information Value Date Recorded Sex Assigned at Not on file Legal Sex Female 3:19 AM PUBLIC HEALTH ADMINISTRATOR Gender Identity Not on file Sexual Orientation Not on file documented as of this encounter Plan of Treatment Not on file documented as of this encounter Visit Diagnoses Diagnosis Nontraumatic slipped upper femoral epiphysis- Primary documented in this encounter Care Teams Superintendent Police Relationship Specialty Start Date End Date Mike Ellsworth MD [address] [place] [phone] PCP - General 01/01/05 documented as of this encounter
--- OUTSIDE RECORDS SUMMARY | 2025-04-13 14:08 | XMS_ITS | Encounter Summary ---
Author Organization [facility] Address [address] [place] [address] Care Team Providers Care Fitness Leader Name Role Phone Mike Ellsworth MD Primary Care Provider +1 [phone] Encounter Details Date Type Department Care Team (Late st Contact Info) Description 06/03/2006 Outpatient Historical [facility] Childrens Surgery [address] [facility] [address] [place] [phone] Brennne Green Social History Tobacco Use Types Packs/Day Years Used Date Smoking Tobacco: Never Assessed Comments Unknown Sex and Gender Information Value Date Recorded Sex Assigned at Not on file Legal Sex Female 3:19 AM TRANSFORMER COIL WINDER Gender Identity Not on file Sexual Orientation Not on file documented as of this encounter Plan of Treatment Not on file documented as of this encounter Visit Diagnoses Not on filedocumented in this encounter Care Teams Fitness Leader Relationship Specialty Start Date End Date Mike Ellsworth MD [address] [facility] [address] [place] [address] PCP - General 01/01/05 documented as of this encounter
--- OUTSIDE RECORDS SUMMARY | 2025-04-13 14:08 | XMS_ITS | Clinical Summary ---
Author Organization [facility] [address] Address [address] [place] [address] Care Team Providers Care Casket Upholsterer Name Role Phone Unknown, Notinfile Primary Care [...] Team Description 01/20/2025 6:35 PM CDT E-Visit [facility] Medical Group Virtual Care [address] [place] [phone] Fadumo Mota, CIARA Your Medications 01/20/2025 Patient Self-Triage [facility] HealthCare/ Physicians [address] [place] [address] Mychart, Generic Provider 01/20/2025 Patient Self-Triage [facility] Phys[facility] [address] [place] [address] Mychart, Generic Provider 01/20/2025 Patient Self-Triage [facility] HealthCare/ Physicians [address] [place] [address] Mychart, Generic Provider from Last 3 Months [...] patient's age to complete this topic Insurance [facility] HMO/PPO Address: [address] [address] [place] [address] [place] [address] ACCESS CHOICE Care Teams Casket Upholsterer Relationship Specialty Start Date End Date Unknown, Notinfile PCP - General 12/07/23
--- OUTSIDE RECORDS SUMMARY | 2025-04-13 14:08 | XMS_ITS | Encounter Summary ---
Author Organization [employer] Address [address] [place] [address] Care Team Providers Care Invasive Manager Name Role Phone Mike Ellsworth MD Primary Care Provider +1 [phone] Encounter Details Date Type Department Care Team (Late st Contact Info) Description 04/06/2007 Emergency [facility] EMERGENCY ROOM Aarti Vang MD [address] [facility] [place] [phone] Er, Authorized P NO ADDRESS ON FILE Cellulitis and Abscess of Leg, except Foot (Primary Dx) Social History Tobacco Use Types Packs/Day Years Used Date Smoking Tobacco: Never Assessed Comments Unknown Sex and Gender Information Value Date Recorded Sex Assigned at Not on file Legal Sex Female 3:19 AM ASPARAGUS CUTTER Gender Identity Not on file Sexual Orientation Not on file documented as of this encounter Plan of Treatment Not on file documented as of this encounter Visit Diagnoses Diagnosis Cellulitis and abscess of leg, except foot- Primary documented in this encounter Care Teams Invasive Manager Relationship Specialty Start Date End Date Mike Ellsworth MD [address] [place] [address] [address] [place] [phone] PCP - General 01/01/05 documented as of this encounter
--- OUTSIDE RECORDS SUMMARY | 2025-04-13 14:08 | XMS_ITS | Encounter Summary ---
Author Organization [employer] Address [address] [place] [address] Care Team Providers Care Machine Driller Name Role Phone Mike Ellsworth MD Primary Care Provider +1 [phone] Encounter Details Date Type Department Care Team (Latest Contact Info) Description 06/03/2006 Inpatient Historical HIS PATIENT IN A BED Mike Ellsworth MD [address] [place] [phone] Cellulitis and Abscess of Buttock (Primary Dx) Social History Tobacco Use Types Packs/Day Years Used Date Smoking Tobacco: Never Assessed Comments Unknown Sex and Gender Information Value Date Recorded Sex Assigned at Not on file Legal Sex Female 3:19 AM PROPERTY ANALYST Gender Identity Not on file Sexual Orientation [...] WITH DIFFERENTIAL (06/03/2006 6:10 PM CDT) Pathologist [facility] [place] NEUTROPHIL ABSOLUTE 10.71 K/uL INTERFACE SYSTEM LYMPHOCYTE [...] ORDERABLES Melva l Result Performing Organization Address City/[facility] Co de Phone Number INTERFACE SYSTEM Refer to clinic/hospital department * CBC WITH DIFFERENTIAL (06/03/2006 6:10 PM CDT) Pathologist [facility] NRBC 0 <=0 /100 WBC INTERFACE SYSTEM 06/03/2006 6:10 PM CDT Archie Roca MD HEMATOLOGY ORDERABLES Melva l Result Performing Organization Address [facility]/ZIP Co de Phone Number INTERFACE SYSTEM Refer to clinic/hospital department * (ABNORMAL) CBC WITH DIFFERENTIAL (06/03/2006 6:10 PM CDT) Pathologist [facility] WBC 12.9(H) 4.0 - 9.8 K/uL INTERFACE [...] ORDERABLES Melva l Result Performing Organization Address City/[facility]/ZIP Co de Phone Number INTERFACE SYSTEM Refer to clinic/hospital department * (ABNORMAL) C-REACTIVE PROTEIN (06/03/2006 6:10 PM CDT) CRP 2.1(H) 0.0 - 0.8 mg/dL INTERFACE SYSTEM 06/03/2006 6:10 PM CDT us Archie Roca MD CHEMISTRY ORDERABLES Final Result Performing Organization Address City/[facility] Co de Phone Number INTERFACE SYSTEM Refer to clinic/hospital department documented in this encounter Visit Diagnoses Diagnosis Cellulitis and abscess of buttock- Primary documented in this encounter Care Teams Machine Driller Relationship Specialty Start Date End Date Mike Ellsworth MD [address] [place] [phone] PCP - General 01/01/05 documented as of this encounter
--- OUTSIDE RECORDS SUMMARY | 2025-04-13 14:09 | XMS_ITS | Clinical Summary ---
Author Organization [facility] Address [facility] [place] [address] Care Team Providers Care And Drying Supervisor Cooking Casing Name Role Phone None, Provider Primary Care Provider Unavaila ble Allergies No known active allergies Medications diclofenac EC (VOLTAREN) 75 MG tablet Take 1 tablet (75 mg total) by mouth 2 (two) times daily. 02/21/2025 Active Encounters Date Type Department Care Team Description 04/09/2025 10:26 PM CDT - 04/10/2025 1:04 AM CDT Emergency [facility] Emergency Room [id number] [place], [place] [id number] Kerline Keating MD Vaginal Bleeding Discharge Disposition: [...] 11:55 PM Narrative 04/10/2025 12:04 AM CDT [facility] [address] [facility] [place] [address] EXAMINATION: OB ultrasound with transvaginal imaging EXAM [...] Procedure Note Pj Anderson MD - 04/10/2025 [facility] [address] [place] [address] EXAMINATION: OB ultrasound with transvaginal imaging EXAM [...] COMPREHENSIVE METABOLIC PANEL (04/09/2025 10:45 PM CDT) [facility] GLUCOSE 94 70 - 99 MG/DL 04/09/2025 11:[address] [facility] BUN 7 7 - 18 MG/DL 04/09/2025 11:[address] [facility] CREATININE S/P/B 0.58 0.55 - 1.02 MG/DL 04/09/2025 11:[address] [facility] SODIUM S/P/B 137 136 - 145 MMOL/L 04/09/2025 11:[address] [facility] POTASSIUM S/P/B 3.9 3.5 - 5.1 MMOL/L 04/09/2025 11:[address] [facility] CHLORIDE S/P/B 103 100 - 108 MMOL/L 04/09/2025 11:[address] [facility] CO2 23.2 21 - 32 MMOL/L 04/09/2025 11:[address] [facility] CALCIUM S/P/B 8.7 8.5 - 10.1 MG/DL 04/09/2025 11:[address] [facility] BILIRUBIN TOTAL S/P/B 0.3 0.2 - 1.2 MG/DL 04/09/2025 11:[address] [facility] TOTAL PROTEIN S/P/B 6.9 6.4 - 8.2 G/DL 04/09/2025 11:[address] [facility] ALBUMIN S/P/B 3.4 3.4 - 5.0 G/DL 04/09/2025 11:[address] [facility] AST 22 15 - 37 U/L 04/09/2025 11:[address] [facility] ALT 37 14 - 55 U/L 04/09/2025 11:[address] [facility] ALKALINE PHOSPHATASE S/P/B 47(L) 50 - 136 U/L 04/09/2025 11:[address] [facility] ANION GAP 10.8 5 - 15 MMOL/L 04/09/2025 11:[address] [facility] BUN CREATININE RATIO 12.1 6 - 26 04/09/2025 11:[address] [facility] A/G RATIO 1.0 1.0 - 2.0 RATIO 04/09/2025 11:[address] [facility] GFR ESTIMATE >90 >90 ML/MIN/1.7 3 M2 04/09/2025 11:[address] [facility] Comment: NOTE: eGFR is not calculated for patients <18 years of age. This is an estimated GFR calculation using the new CKD EPI creatinine equation without race and so does not require a correction factor for race. This estimated GFR should not be used for calculating drug doses. 04/09/2025 10:4 5 PM CDT Kerline Keating MD LABORATORY Final Result [facility] [address] [place] [address], * (ABNORMAL) HCG QUANTITATIVE SERUM (04/09/2025 10:45 PM CDT) Pathologist [facility] HCG QUANTITATIVE 38,908(H) 0 - 6 MIU/ML 04/09/2025 11:[address] [facility] Comment: WEEKS OF REFERENCE RANGES [...] 5 PM CDT us Kerline Keating MD LABORATORY Final Result Performing Organization Address City/[facility]/ZIP Co de Phone Number [facility] [address] [place] [address], [place] [phone] * BLOOD TYPING, ABO AND RH (04/09/2025 10:45 PM CDT) Pathologist [facility] ABO/RH A POSITIVE 04/09/2025 11:[address] [facility] 04/09/2025 10:4 5 PM CDT us Kerline Keating MD BLOOD BANK TEST ORDERABLES Melva l Result Performing Organization Address City/[facility]/ZIP Co de Phone Number [facility] [address] [place] [address], [place] [phone] * (ABNORMAL) CBC W/DIFF AUTOMATED (04/09/2025 10:45 PM CDT) WBC 10.58 4.4 - 11.0 x10'3/uL 04/09/2025 11:[address] [facility] RBC 4.95 4.50 - 5.10 x10'6/uL 04/09/2025 11:[address] [facility] HGB 13.4 12.3 - 15.3 G/DL 04/09/2025 11:[address] [facility] HCT 41.5 35.9 - 44.6 % 04/09/2025 11:[address] [facility] MCV 83.8 80.0 - 96.0 FL 04/09/2025 11:[address] [facility] MCH 27.1 25.3 - 30.9 PG 04/09/2025 11:[address] [facility] MCHC 32.3 31.0 - 34.1 G/DL 04/09/2025 11:02 PM [facility] RDW 14.7 12.4 - 15.1 % 04/09/2025 11:02 PM [facility] PLT 253 151 - 353 x10'3/uL 04/09/2025 11:[address] [facility] MPV 10.0 9.6 - 12.0 FL 04/09/2025 11:[address] [facility] RBC MORPHOLOGY NORMAL 04/09/2025 11:02 PM [facility] PLT MORPH. NORMAL 04/09/2025 11:02 PM [facility] WBC MORPHOLOGY NORMAL 04/09/2025 11:02 PM [facility] LYMPHOCYTES % 23.9 15.8 - 45.0 % 04/09/2025 11:02 PM [facility] NEUTROPHILS % 66.2 42.1 - 71.9 % 04/09/2025 11:02 PM [facility] MONOCYTES % 7.5 5.7 - 12.5 % 04/09/2025 11:02 PM [facility] EOSINOPHILS 1.4 0.0 - 5.6 % 04/09/2025 11:02 PM [facility] BASOPHILS 0.5 0.0 - 1.3 % 04/09/2025 11:02 PM [facility] ABS. NEUTROPHILS 7.01(H) 1.40 - 6.00 x10'3/uL 04/09/2025 11:02 PM [facility] IMMATURE GRANS % 0.5 0.0 - 0.5 % 04/09/2025 11:[address] [facility] ABS. LYMPHOCYTES 2.53 0.80 - 4.70 x10'3/uL 04/09/2025 11:[address] [facility] 04/09/2025 10:4 5 PM CDT Kerline Keating MD LABORATORY Final Result [facility] [address] [place] [address], [place] [phone] from Last 3 Months Insurance * Guarantor: Ellen Stratton I Account Type Relation to Patient Date of Phone Billing Address Personal/Family Self 1995 [id number] Care Teams And Drying Supervisor Cooking Casing Relationship Specialty Start Date End Date None, Provider, PCP - General UNKNOWN PHYSICIAN SPECIALTY 04/09/25
[2025-04-13 15:43] LABS: Beta HCG Quantitative 53040.00 mIU/ML
== END 2025-04-13 13:58 | disposition home or self-care (01) ==
LOC: ANHIMG 13:58
PROVIDERS: Visit Provider Nurse Practitioner Obstetrics & Gynecology
DX: O26.859 Spotting complicating pregnancy, unspecified trimester (principal); O36.80X0 Pregnancy with inconclusive fetal viability, not applicable or unspecified; O20.0 Threatened abortion; Z3A.00 Weeks of gestation of pregnancy not specified
CPT/HCPCS: 36415; 76801; 76817; 84702; 86850; 86900; 86901

== ENCOUNTER 2025-04-19 10:55 | Outpatient (CLI) | payer OTHER, SELFPAY ==
--- NOTE | ~2025-04-19 | US_ITS ---
EXAMINATION: US OB <=14 wk fetus w TV DATE: 04/19/2025 12:15 INDICATION: Inconclusive viability TECHNIQUE: Real-time transabdominal and transvaginal obstetric ultrasound. FINDINGS: Ultrasound dated 04/13/2025 The uterus measures 12.2 x 6.3 x 6.2 cm. There is an intrauterine gestational sac, with pole identified. The crown rump length measures 1.65 cm, which correlates with a estimated gestational age of 8 weeks 0 days. heart tones are identified measuring 172 bpm. There is a small subchorionic hemorrhage. There are nabothian cysts. Right ovary within normal limits measuring 2.7 x 2.2 x 1.6 cm IMPRESSION: 1. SL IUP with an EGA of 8 weeks, 0 days (EDC by current ultrasound of 11/29/2025 2: Small subchorionic hemorrhage.). Reviewed, dictated and finalized at location O. IMPRESSION: 1. SL IUP with an EGA of 8 weeks, 0 days (EDC by current ultrasound of 11/30/19 26 2: Small subchorionic hemorrhage.).
--- OUTSIDE RECORDS SUMMARY | 2025-04-19 11:24 | XMS_ITS | Clinical Summary ---
Author Organization [facility] [address] Address [address] [place] [address] Care Team Providers Care Police Officer Booking Name Role Phone Unknown, Notinfile Primary Care [...] Team Description 01/20/2025 6:35 PM CDT E-Visit [facility] Medical Group Virtual Care [address] [place] [address] Fadumo Mota, CIARA Your Medications 01/20/2025 Patient Self-Triage [facility] HealthCare/ Physicians [address] [place] [address] Mychart, Generic Provider 01/20/2025 Patient Self-Triage [facility] [address] [place] [address] Mychart, Generic Provider 01/20/2025 Patient Self-Triage [facility] HealthCare/ Physicians [address] [place] [address] Mychart, Generic Provider from Last 3 Months [...] patient's age to complete this topic [place] [place] [address] ACCESS CHOICE Care Teams Police Officer Booking Relationship Specialty Start Date End Date Unknown, Notinfile PCP - General 12/07/23
--- OUTSIDE RECORDS SUMMARY | 2025-04-19 11:24 | XMS_ITS | Encounter Summary ---
Author Organization [facility] Address [address] [place] [address] Care Team Providers Care Infrastructure Manager Name Role Phone Mike Ellsworth MD Primary Care Provider [phone] [phone] Encounter Details Date Type Department Care Team (Late st Contact Info) Description 06/03/2006 Outpatient Historical [facility] Department of Peds at [facility] [address] [place] [address] Archie Roca MD NO ADDRESS ON FILE Social History Tobacco Use Types Packs/Day Years Used Date Smoking Tobacco: Never Assessed Comments Unknown Sex and Gender Information Value Date Recorded Sex Assigned at Not on file Legal Sex Female 3:19 AM NEWSPAPER PHOTOGRAPHER Gender Identity Not on file Sexual Orientation Not on file documented as of this encounter Plan of Treatment Not on file documented as of this encounter Visit Diagnoses Not on filedocumented in this encounter Care Teams Infrastructure Manager Relationship Specialty Start Date End Date Mike Ellsworth MD [address] [place] [address] [address], [place] [address] PCP - General 01/01/05 documented as of this encounter
--- OUTSIDE RECORDS SUMMARY | 2025-04-19 11:24 | XMS_ITS | Encounter Summary ---
Author Organization [facility] Address [address] [place] [address] Care Team Providers Care Cigar Sorter Name Role Phone Mike Ellsworth MD Primary Care Provider +1 [phone] Encounter Details Date Type Department Care Team (Late st Contact Info) Description 09/15/2006 Outpatient Historical [facility] IMG-HOS[facility] Mike Ellsworth MD [address] [address] Swelling, Mass, or Lump in Head and Neck (Primary Dx) Social History Tobacco Use Types Packs/Day Years Used Date Smoking Tobacco: Never Assessed Comments Unknown Sex and Gender Information Value Date Recorded Sex Assigned at Not on file Legal Sex Female 3:19 AM CLOSING COORDINATOR Gender Identity Not on file Sexual Orientation Not on file documented as of this encounter Plan of Treatment Not on file documented as of this encounter Visit Diagnoses Diagnosis Swelling, mass, or lump in head and neck- Primary documented in this encounter Care Teams Cigar Sorter Relationship Specialty Start Date End Date Mike Ellsworth MD [address] [facility] [address] [address] PCP - General 01/01/05 documented as of this encounter
--- OUTSIDE RECORDS SUMMARY | 2025-04-19 11:24 | XMS_ITS | Encounter Summary ---
Author Organization [facility] Address [address] [place] [address] Care Team Providers Care Residential Building Inspector Name Role Phone Mike Ellsworth MD Primary Care Provider [phone] [phone] Encounter Details Date Type Department Care Team (Late st Contact Info) Description 11/23/2008 Outpatient Historical [facility] IMG-LAB [facility] Angélica Martin MD [address] [place] [address] Cervicalgia Social History Tobacco Use Types Packs/Day Years Used Date Smoking Tobacco: Never Assessed Comments Unknown Sex and Gender Information Value Date Recorded Sex Assigned at Not on file Legal Sex Female 3:19 AM INVENTORY TECHNICIAN Gender Identity Not on file Sexual [...] PM CDT Narrative 11/24/2008 9:57 AM CDT [facility] [address] [place], [place] [address] Admit Date: 11/23/2008 KAREN CALIXTO I Sex: F Admit Prov: ANGÉLICA MARTIN Date: 1995 Primary Care Prov: MIKE ELLSWORTH CMRN: [id number] Room: [facility] SSN: [id number] IMAGING SERVICES Ordering Prov: N/A Accession Number: [id number] Interpretation CT LUMBAR SPINE WITHOUT CONTRAST Nov [...] LE Procedure Note Fabián Jack - 11/24/[address] [address] Admit Date: 11/23/2008 SILVESTREPANFILO KARENClau Sex: F Admit Prov: ANGÉLICA MARTIN Date:1995 Primary Care Prov: MIKE ELLSWORTH CMRN: [id number] Room: [facility] SSN: [id number] IMAGING SERVICES Ordering Prov: N/A Interpretation CT [...] Cervicalgia documented in this encounter Care Teams Residential Building Inspector Relationship Specialty Start Date End Date Mike Ellsworth MD [address] [place] [address] PCP - General 01/01/05 documented as of this encounter
--- OUTSIDE RECORDS SUMMARY | 2025-04-19 11:24 | XMS_ITS | Encounter Summary ---
Author Organization [employer] Address [address] [place] [address] Care Team Providers Care Spray Gunner Name Role Phone Mike Ellsworth MD Primary Care Provider +1 [phone] Encounter Details Date Type Department Care Team (Latest Contact Info) Description 01/01/2005 Inpatient Historical HIS PATIENT IN A BED Alex Buckner MD NO ADDRESS ON FILE FEMORAL EPIPHYSIOLYSIS (Primary Dx) Social History Tobacco Use Types Packs/Day Years Used Date Smoking Tobacco: Never Assessed Comments Unknown Sex and Gender Information Value Date Recorded Sex Assigned at Not on file Legal Sex Female 3:19 AM QUALITY IMPROVEMENT ANALYST Gender Identity Not on file Sexual Orientation Not on file documented as of this encounter Plan of Treatment Not on file documented as of this encounter Visit Diagnoses Diagnosis Nontraumatic slipped upper femoral epiphysis- Primary documented in this encounter Care Teams Spray Gunner Relationship Specialty Start Date End Date Mike Ellsworth MD [address] [place] [phone] PCP - General 01/01/05 documented as of this encounter
--- OUTSIDE RECORDS SUMMARY | 2025-04-19 11:24 | XMS_ITS | Encounter Summary ---
Author Organization [facility] Address [address] [place] [address] Care Team Providers Care Campaign Worker Name Role Phone Mike Ellsworth MD Primary Care Provider +1 [phone] Encounter Details Date Type Department Care Team (Late st Contact Info) Description 06/03/2006 Outpatient Historical [facility] Childrens Surgery [address] [facility] [address] [place] [phone] Brennen Green Social History Tobacco Use Types Packs/Day Years Used Date Smoking Tobacco: Never Assessed Comments Unknown Sex and Gender Information Value Date Recorded Sex Assigned at Not on file Legal Sex Female 3:19 AM DIRECTOR OF SEARCH ENGINE OPTIMIZATION Gender Identity Not on file Sexual Orientation Not on file documented as of this encounter Plan of Treatment Not on file documented as of this encounter Visit Diagnoses Not on filedocumented in this encounter Care Teams Campaign Worker Relationship Specialty Start Date End Date Mike Ellsworth MD [address] [facility] [address] [place] [address] PCP - General 01/01/05 documented as of this encounter
--- OUTSIDE RECORDS SUMMARY | 2025-04-19 11:24 | XMS_ITS | Encounter Summary ---
Author Organization [employer] Address [address] [place] [address] Care Team Providers Care Manager Store Name Role Phone Mike Ellsworth MD Primary Care Provider [phone] [phone] Encounter Details Date Type Department Care Team (Latest Contact Info) Description 07/10/2005 Outpatient Historical [facility] PATIENT IN A BED Alex Buckner MD NO ADDRESS ON FILE FEMORAL EPIPHYSIOLYSIS (Primary Dx) Social History Tobacco Use Types Packs/Day Years Used Date Smoking Tobacco: Never Assessed Comments Unknown Sex and Gender Information Value Date Recorded Sex Assigned at Not on file Legal Sex Female 3:19 AM SPINNING MACHINE OPERATOR Gender Identity Not on file Sexual Orientation Not on file documented as of this encounter Plan of Treatment Not on file documented as of this encounter Visit Diagnoses Diagnosis Nontraumatic slipped upper femoral epiphysis- Primary documented in this encounter Care Teams Manager Store Relationship Specialty Start Date End Date Mike Ellsworth MD [address] [place] [phone] PCP - General 01/01/05 documented as of this encounter
--- OUTSIDE RECORDS SUMMARY | 2025-04-19 11:24 | XMS_ITS | Encounter Summary ---
Author Organization [employer] Address [address] [place] [address] Care Team Providers Care Street Cleaner Name Role Phone Mike Ellsworth MD Primary Care Provider [phone] [phone] Encounter Details Date Type Department Care Team (Late st Contact Info) Description 04/06/2007 Emergency [facility] EMERGENCY ROOM Aarti Vang MD [address] [facility] [place] [phone] Er, Authorized P NO ADDRESS ON FILE Cellulitis and Abscess of Leg, except Foot (Primary Dx) Social History Tobacco Use Types Packs/Day Years Used Date Smoking Tobacco: Never Assessed Comments Unknown Sex and Gender Information Value Date Recorded Sex Assigned at Not on file Legal Sex Female 3:19 AM FLIGHT TEACHER Gender Identity Not on file Sexual Orientation Not on file documented as of this encounter Plan of Treatment Not on file documented as of this encounter Visit Diagnoses Diagnosis Cellulitis and abscess of leg, except foot- Primary documented in this encounter Care Teams Street Cleaner Relationship Specialty Start Date End Date Mike Ellsworth MD [address] [place] [address] [address] [place] [phone] PCP - General 01/01/05 documented as of this encounter
--- OUTSIDE RECORDS SUMMARY | 2025-04-19 11:24 | XMS_ITS | Encounter Summary ---
Author Organization [employer] Address [address] [place] [address] Care Team Providers Care Shot Bagger Name Role Phone Mike Ellsworth MD Primary Care Provider [phone] Encounter Details Date Type Department Care Team (Latest Contact Info) Description 06/03/2006 Inpatient Historical HIS PATIENT IN A BED Mike Ellsworth MD [address] [place] [id number] Cellulitis and Abscess of Buttock (Primary Dx) Social History Tobacco Use Types Packs/Day Years Used Date Smoking Tobacco: Never Assessed Comments Unknown Sex and Gender Information Value Date Recorded Sex Assigned at Not on file Legal Sex Female 3:19 AM WET SANDER Gender Identity Not on file Sexual Orientation [...] WITH DIFFERENTIAL (06/03/2006 6:10 PM CDT) Pathologist [facility] NEUTROPHIL ABSOLUTE 10.71 K/uL INTERFACE SYSTEM LYMPHOCYTE [...] ORDERABLES Melva l Result Performing Organization Address City/[facility] Co de Phone Number INTERFACE SYSTEM Refer to clinic/hospital department * CBC WITH DIFFERENTIAL (06/03/2006 6:10 PM CDT) Pathologist [facility] NRBC 0 <=0 /100 WBC INTERFACE SYSTEM 06/03/2006 6:10 PM CDT Archie Roca MD HEMATOLOGY ORDERABLES Melva l Result Performing Organization Address [facility]/ZIP Co de Phone Number INTERFACE SYSTEM Refer to clinic/hospital department * (ABNORMAL) CBC WITH DIFFERENTIAL (06/03/2006 6:10 PM CDT) Pathologist [facility] WBC 12.9(H) 4.0 - 9.8 K/uL INTERFACE [...] ORDERABLES Melva l Result Performing Organization Address City/[facility]/ZIP Co de Phone Number INTERFACE SYSTEM Refer to clinic/hospital department * (ABNORMAL) C-REACTIVE PROTEIN (06/03/2006 6:10 PM CDT) CRP 2.1(H) 0.0 - 0.8 mg/dL INTERFACE SYSTEM 06/03/2006 6:10 PM CDT us Archie Roca MD CHEMISTRY ORDERABLES Final Result Performing Organization Address City/[facility] Co de Phone Number INTERFACE SYSTEM Refer to clinic/hospital department documented in this encounter Visit Diagnoses Diagnosis Cellulitis and abscess of buttock- Primary documented in this encounter Care Teams Shot Bagger Relationship Specialty Start Date End Date Mike Ellsworth MD [address] [place] [phone] PCP - General 01/01/05 documented as of this encounter
--- OUTSIDE RECORDS SUMMARY | 2025-04-19 11:24 | XMS_ITS | Clinical Summary ---
Author Organization [facility] Address [address] [place] [address] Care Team Providers Care Concrete Mixing Plant Superintendent Name Role Phone Mike Ellsworth MD Primary Care Provider [phone] Allergies No known active allergies Medications diclofenac [...] Abstract 02/22/2025 11:15 AM CDT Office Visit [facility] Sports Medicine at the [facility] [address] [place] [address] Jeferson Grant MD Primary osteoarthritis of left hip (Primary Dx) 02/21/2025 External Device Data ST[facility] ABSTRACTION Provider, Abstract 02/17/2025 Refill [facility] Orthopedic Surgery at the [address] [place] [address] Gloria Nair PA 02/17/2025 Telephone [facility] Orthopedic Surgery at the [address] [place] [address] Gloria Nair PA Handicapped Placard 02/16/2025 3:30 PM CDT Office Visit [facility] Orthopedic Surgery at the [address] [place] [address] Gloria Nair PA Other secondary osteoarthritis of left hip (Primary Dx) 01/17/2025 Refill [facility] Orthopedic Surgery at the [address] [place] [address] Gloria Nair PA from Last 3 Months Social History Tobacco Use Types Packs/Day Years Used Date Smoking Tobacco: Never Tobacco Cessation:Counseling Given: Not Answered Comments Unknown Sex and Gender Information Value Date Recorded Sex Assigned at Not on file Legal Sex Female 3:19 AM BRASS WIND INSTRUMENT MAKER Gender Identity Not on file Sexual Orientation Not on file Plan of Treatment Health Maintenance Due Date Last Done Comments DTAP/TDAP/TD VACCINES (1 - Tdap) 2013 HEPATITIS B VACCINES (1 of 3 - 19+ 3-dose series) 05/24 HPV/Cotest (21-29) 2015 HPV VACCINES (1 - 3-dose SCDM series) 2021 CERVICAL CANCER SCREENING 2024 HPV/Cotest (30-65) 2024 PAP SMEAR 2024 INFLUENZA VACCINE (#1) 2025 Insurance Care Teams Con[employer] Mixing [employer] Superintendent Relationship Specialty Start Date End Date Mike Ellsworth MD [address] [place] [phone] PCP - General 01/01/05
== END 2025-04-19 10:56 | disposition home or self-care (01) ==
PROVIDERS: PCP Nurse Practitioner Obstetrics & Gynecology; Visit Provider Nurse Practitioner Obstetrics & Gynecology
DX: O36.80X0 Pregnancy with inconclusive fetal viability, not applicable or unspecified (principal); Z3A.00 Weeks of gestation of pregnancy not specified
CPT/HCPCS: 76801; 76817